=== PATIENT | male | born 1965 | race Caucasian/White ===

== ENCOUNTER 2019-09-04 16:08 | Emergency (ER) | payer OTHER ==
[2019-09-04] MEDS ORDERED: CORTISPORIN OTI10 ML AS (18:22)
[2019-09-04] MEDS ORDERED: AUGMENTIN500TAB PO (18:22)
[2019-09-04 18:28] VITALS: BP 106/64
== END 2019-09-04 18:28 | disposition home or self-care (01) | DRG 156 ==
LOC: ED 16:08
DX: H61.22 Impacted cerumen, left ear (principal); H60.8X2 Other otitis externa, left ear; H66.92 Otitis media, unspecified, left ear

== ENCOUNTER 2019-09-25 17:26 | Emergency (ER) | payer OTHER ==
[~2019-09-25] VITALS: Ht 170.2 cm; Wt 81.8 kg
[~2019-09-25 17:26] MED LIST: AUGMENTIN500TAB PO; CORTISPORIN OTI10 ML AS
[2019-09-25 18:44] LABS: HEMATOCRIT 46.3 % (39.0-50.0); HEMOGLOBIN 15.9 g/dl (14.0-18.0); IMMATURE GRANULOCYTES 0.3 % (0.0-5.0); MEAN CELL VOLUME 87.9 fL CALC (80.0-100.0); MEAN CORPUSCULAR HGB 30.2 pG CALC (26.0-32.0); MEAN CORPUSCULAR HGB CONC 34.3 g/L CALC (32.0-36.0); NEUT# 2.37 thou/uL (1.82-7.42); RED BLOOD COUNT 5.27 mill/uL (4.70-6.10); RED CELL DISTRI WIDTH 12.3 % (11.5-15.5)
[2019-09-25] MEDS ORDERED: TAM75CAP PO (19:36)
[2019-09-25] MEDS ORDERED: TESSALON PER100 MG PO (19:36)
[2019-09-25 19:45] VITALS: BP 116/74
== END 2019-09-25 19:45 | disposition home or self-care (01) | DRG 153 ==
LOC: ED 17:26
PROVIDERS: Family Medicine
DX: J11.1 Influenza due to unidentified influenza virus with other respiratory manifestations (principal); I10 Essential (primary) hypertension